=== PATIENT | male | born 1930 | race Caucasian/White ===

== ENCOUNTER 2022-03-12 22:31 | Inpatient (IN) | payer OTHER ==
[~2022-03-12] VITALS: Ht 167.6 cm; Wt 101.4 kg
[~2022-03-12 22:31] MED LIST: ACET500 PO; ALLO300 PO; ASCO1ER PO; ASPI81CH PO; ATEN25 PO; ATEN50 PO; CHOL10002 PO; DOCU100 PO; HCTZ; INDO25 PO; MULVITA PO; MULVITMIND PO; OMEP20ER PO; POTASSIUM PO; RANI150 PO; TERA5 PO; TRIAM; TRIHYD253A PO; VIT D PO; [UNRECOGNIZED DRUG - OTHER]; [UNRECOGNIZED DRUG - OTHER] PO
[2022-03-12 23:52] LABS: BASOPHILS ABSOLUTE AUTO 0.05 K/mm3 (0.00-0.23); BASOPHILS PERCENT AUTO 1 % (0-2); EOSINOPHILS ABSOLUTE AUTO 0.18 K/mm3 (0.00-0.68); EOSINOPHILS PERCENT AUTO 3 % (0-6); Hematocrit 32.6 % (37.0-53.0); Hemoglobin 11.3 g/dL (13.5-17.5); IMMATURE GRAN ABSOLUTE AUTO 0.03 K/mm3 (0.00-0.10); IMMATURE GRAN PERCENT AUTO 1 % (0-1); LYMPHOCYTES ABSOLUTE AUTO 1.09 K/mm3 (0.84-5.20); LYMPHOCYTES PERCENT AUTO 21 % (21-46); MONOCYTES ABSOLUTE AUTO 0.35 K/mm3 (0.16-1.47); MONOCYTES PERCENT AUTO 7 % (4-13); Mean Corpuscular HGB 35.3 pg (26.0-34.0); Mean Corpuscular HGB Conc 34.7 g/dL (31.5-36.5); Mean Corpuscular Volume 102 fL (80-100); Mean Platelet Volume 11.7 fL (9.1-12.4); NEUTROPHILS ABSOLUTE AUTO 3.55 K/mm3 (1.96-9.15); NEUTROPHILS PERCENT AUTO 68 % (41-73); NRBC ABSOLUTE 0.02 K/mm3 (0.00-0.02); NRBC Auto 0.4 /100 WBC (0.0-0.2); Platelet Count 142 K/mm3 (150-400); RDW Coefficient Variation 16.2 % (11.7-14.2); RDW Standard Deviation 60.8 fL (35.1-46.3); White Blood Cell Count 5.25 K/mm3 (4.00-11.30)
[2022-03-13 00:12] LABS: Albumin, Blood 3.3 g/dL (3.4-5.0); Albumin/Globulin Ratio 1.2 (0.8-1.8); Bilirubin, Total 0.8 mg/dL (0.1-1.0); Bun/Creatinine Ratio 25.5 (12.0-20.0); Calcium, Blood 9.1 mg/dL (8.5-10.1); Creatinine, Blood 0.98 mg/dL (0.60-1.20); Globulin, Blood 2.8 g/dL (2.2-4.0); Potassium, Blood 3.5 mmol/L (3.5-5.5); Total Protein, Blood 6.1 g/dL (6.4-8.2)
[2022-03-13 01:19] LABS: International Normalized Ratio 1.17; Prothrombin Time Results 12.2 Sec (9.7-11.5)
[2022-03-13 06:12] LABS: BASOPHILS ABSOLUTE AUTO 0.04 K/mm3 (0.00-0.23); BASOPHILS PERCENT AUTO 1 % (0-2); EOSINOPHILS ABSOLUTE AUTO 0.16 K/mm3 (0.00-0.68); EOSINOPHILS PERCENT AUTO 3 % (0-6); Hematocrit 31.2 % (37.0-53.0); Hemoglobin 10.5 g/dL (13.5-17.5); IMMATURE GRAN ABSOLUTE AUTO 0.05 K/mm3 (0.00-0.10); IMMATURE GRAN PERCENT AUTO 1 % (0-1); LYMPHOCYTES ABSOLUTE AUTO 0.97 K/mm3 (0.84-5.20); LYMPHOCYTES PERCENT AUTO 19 % (21-46); MONOCYTES ABSOLUTE AUTO 0.37 K/mm3 (0.16-1.47); MONOCYTES PERCENT AUTO 7 % (4-13); Mean Corpuscular HGB 34.4 pg (26.0-34.0); Mean Corpuscular HGB Conc 33.7 g/dL (31.5-36.5); Mean Corpuscular Volume 102 fL (80-100); Mean Platelet Volume 11.8 fL (9.1-12.4); NEUTROPHILS ABSOLUTE AUTO 3.47 K/mm3 (1.96-9.15); NEUTROPHILS PERCENT AUTO 69 % (41-73); NRBC ABSOLUTE 0.02 K/mm3 (0.00-0.02); NRBC Auto 0.4 /100 WBC (0.0-0.2); Platelet Count 141 K/mm3 (150-400); RDW Coefficient Variation 16.3 % (11.7-14.2); RDW Standard Deviation 60.7 fL (35.1-46.3); Red Blood Cell Count 3.05 M/mm3 (4.30-5.90); White Blood Cell Count 5.06 K/mm3 (4.00-11.30)
[2022-03-13 06:34] LABS: Albumin, Blood 3.2 g/dL (3.4-5.0); Albumin/Globulin Ratio 1.3 (0.8-1.8); Bun/Creatinine Ratio 26.3 (12.0-20.0); Calcium, Blood 9.3 mg/dL (8.5-10.1); Creatinine, Blood 0.95 mg/dL (0.60-1.20); Globulin, Blood 2.5 g/dL (2.2-4.0); Potassium, Blood 3.7 mmol/L (3.5-5.5); Total Protein, Blood 5.7 g/dL (6.4-8.2)
--- NOTE | 2022-03-13 06:35 | NUR ---
SUMMARY PT ARRIVED TO FLOOR IN NO DISTRESS. PT HAD A JEREMY BLOODY STOOL UPON ARRIVAL. PT DENIES PAIN, DIZZINESS OR N/V. PT RESTING COMFORTABLY. CALL LIGHT IN REACH.
[2022-03-13 08:56] LABS: Hematocrit 29.2 % (37.0-53.0); Hemoglobin 9.8 g/dL (13.5-17.5)
[2022-03-13 13:15] LABS: Hematocrit 26.5 % (37.0-53.0); Hemoglobin 8.9 g/dL (13.5-17.5)
--- NOTE | 2022-03-13 13:42 | NUR ---
Upon receiving a spiritual care referral, I visit. Pt lying in bed and alert. Pt talks at length about his family (blended fam. 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 Rapport is easily established and encouragement easily received by pt. I provide therapeutic listening, recitation of scripture and prayer. After my visit, I returned when a rapid response was called for pt's rm. I provide a calming presence and reassurance to pt. I will continue to remain available to patient and family.
[2022-03-13] MEDS ORDERED: ELIQUIS5 M2 PO (13:53)
[2022-03-13] MEDS ORDERED: VOLTAREN ARTHRI20 GM TOP (13:54)
[2022-03-13] MEDS ORDERED: DYAZIDE 37.5-21 EACH PO (13:55)
--- NOTE | 2022-03-13 13:56 | NUR ---
PT WAS UP TO THE BSC AT AROUND 1230. PT HAD A SYNCOPE EPISODE AND HR OF 25 BPM PER TELE WITH A 3 SEC PAUSE. PT WOKE UP AND WAS RESPONSIVE, ABLE TO TRANSFER BACK TO THE BED, VSS AFTER PLACING THE PT BACK INTO BED. AT 1300 VITAL VS TAKEN AGAIN SHOWED BP 76/46 A RAPID REPSONCE WAS CALLED THE PT STARTED ON A NS BOLUS AND TRANSFERED TO PCU. REPORT CALLED TO BETHANY GODOY RN
[2022-03-13] MEDS ORDERED: OMEP20ER PO (14:05)
[2022-03-13] MEDS ORDERED: B-12500 MC2 PO (14:06)
[2022-03-13] MEDS ORDERED: FINA5 PO (14:06)
[2022-03-13] MEDS ORDERED: ATEN25 PO (14:07)
[2022-03-13] MEDS ORDERED: CELE200 PO (14:07)
[2022-03-13] MEDS ORDERED: POTASSIUM GLUCO99 M1 PO (14:07)
[2022-03-13] MEDS ORDERED: FISH OIL 1,2001 EAC7 PO (14:08)
[2022-03-13] MEDS ORDERED: TERA5 PO (14:10)
[2022-03-13] MEDS ORDERED: ERGO400 PO (14:10)
[2022-03-13] MEDS ORDERED: ALLO300 PO (14:10)
[2022-03-13] MEDS ORDERED: ASCO500 PO (14:11)
[2022-03-13 14:48] LABS: Influenza A, PCR NEGATIVE (NEGATIVE); Influenza B, PCR NEGATIVE (NEGATIVE); Resp Syncytial Virus, PCR NEGATIVE (NEGATIVE); SARS-Cov-2 (COVID-19) PCR, MMC NEGATIVE (NEGATIVE)
--- NOTE | 2022-03-13 15:37 | NUR ---
Pt to scope
--- NOTE | 2022-03-13 16:18 | NUR ---
03/13/22 1618 David Davenport HISTORY, CHART, MEDICATIONS AND ALLERGIES REVIEWED BEFORE START OF PROCEDURE. PATIENT CONFIRMS NPO STATUS AND AGREES WITH SCHEDULED PROCEDURE. 3-LEAD EKG REVIEWED WITH PHYSICIAN PRIOR TO START OF PROCEDURE. MONITOR INTACT WITH CONTINUOUS PULSE OXIMETRY,CAPNOGRAPHY, 3-LEAD EKG, INTERMITTENT BP. SUPPLEMENTAL O2 TO BE TITRATED THROUGHOUT PROCEDURE TO MAINTAIN O2 SATURATION ABOVE 90%. PATIENT DETERMINED TO BE ASA APPROPRIATE FOR PROPOFOL SEDATION PRIOR TO START OF PROCEDURE BY DR. GUTIÉRREZ.
--- NOTE | 2022-03-13 18:37 | NUR ---
Shift Summary Pt to room at approx 1319, receivied bedside report from Manolo Meza. Pt oriented to room and unit. Bed in low, call light within reach. Pt alert, oriented x3, calm and cooperative with care. [facility]. Pt denies pain, chest pain/pressure, sob, nausea and dizziness at rest. Pt on bedrest due to syncopal episode prior to transfer to pcu. Pt tele afib 60-80's, prior to transfer pt dropped to 16-25 bpm per television specialist, ST changes noted per television specialist, ekg completed, Dr Canales notified of results, bp stable, elevated. Ls clear t/o, on 2l o2 via nc spo2 >90%, after blood transfusion and scope, ls dim in bases. Abd soft, nontender with normoactive bt, pt previous passing large amount of dark red blood, no bms noted by this rn. H&H results called to Dr Canales, new orders for 1 unit prbc, completed. Colonoscopy completed this evening, Dr Wang at bedside updated spouse, new order for full liquid diet. Other vss. No other acute changes noted. Will continue to monitor.
--- NOTE | 2022-03-13 20:19 | NUR ---
ASSUMED CARE OF PATIENT AT APPROXIMATELY 1905 FROM BETHANY Casper RN. PATIENT ALERT AND ORIENTED X4; FORGETFUL DURING BEDSIDE REPORTS STATE IT WAS MORNING NOT NIGHT TIME; REORIENTED. PATIENT ABLE TO STATE NAME, , LOCATION. PATIENT DENIES PAIN, DIZZINESS, AND NAUSEA. PATIENT ATE 100% OF FULL LIQUID DIET DINNER. AFIB ON TELE; OXYGEN SATURATION ABOVE 90% ON ROOM AIR. IVF INFUSING PER ORDER; 2X PIV.
--- NOTE | 2022-03-13 23:50 | NUR ---
CALLED Parveen LUA TO REPORT PATIENT NS INFUSING AT 125; PATIENT EATING AND DRINKING; ORDER TO D/C FLUIDS
[2022-03-14 04:27] LABS: BASOPHILS ABSOLUTE AUTO 0.02 K/mm3 (0.00-0.23); BASOPHILS PERCENT AUTO 0 % (0-2); EOSINOPHILS ABSOLUTE AUTO 0.19 K/mm3 (0.00-0.68); EOSINOPHILS PERCENT AUTO 4 % (0-6); Hematocrit 25.4 % (37.0-53.0); Hemoglobin 8.5 g/dL (13.5-17.5); IMMATURE GRAN ABSOLUTE AUTO 0.02 K/mm3 (0.00-0.10); IMMATURE GRAN PERCENT AUTO 0 % (0-1); LYMPHOCYTES ABSOLUTE AUTO 1.04 K/mm3 (0.84-5.20); LYMPHOCYTES PERCENT AUTO 20 % (21-46); MONOCYTES ABSOLUTE AUTO 0.36 K/mm3 (0.16-1.47); MONOCYTES PERCENT AUTO 7 % (4-13); Mean Corpuscular HGB 34.1 pg (26.0-34.0); Mean Corpuscular HGB Conc 33.5 g/dL (31.5-36.5); Mean Corpuscular Volume 102 fL (80-100); Mean Platelet Volume 12.1 fL (9.1-12.4); NEUTROPHILS ABSOLUTE AUTO 3.65 K/mm3 (1.96-9.15); NEUTROPHILS PERCENT AUTO 69 % (41-73); NRBC ABSOLUTE 0.02 K/mm3 (0.00-0.02); NRBC Auto 0.4 /100 WBC (0.0-0.2); Platelet Count 129 K/mm3 (150-400); RDW Coefficient Variation 17.1 % (11.7-14.2); Red Blood Cell Count 2.49 M/mm3 (4.30-5.90); White Blood Cell Count 5.28 K/mm3 (4.00-11.30)
[2022-03-14 04:44] LABS: Bun/Creatinine Ratio 23.8 (12.0-20.0); Calcium, Blood 8.4 mg/dL (8.5-10.1); Creatinine, Blood 0.88 mg/dL (0.60-1.20); Potassium, Blood 3.6 mmol/L (3.5-5.5)
--- NOTE | 2022-03-14 06:16 | NUR ---
PATIENT SLEPT ABOUT EIGHT HOURS LAST NIGHT. NO ACUTE CHANGES TO REPORT.
--- NOTE | 2022-03-14 11:43 | NUR ---
DISCHARGE UPDATE DISCHARGE PACKET GONE OVER WITH PT AND PT AT 1130. PT LEFT UNIT AT 1141 VIA WHEELCHAIR AND ON RA. PT ABLE TO TRANSFER SELF TO AND FROM WHEELCHAIR ON HIS OWN, TOLERATED WELL. PT BELONGINGS IN BAG ALONG WITH DISCHARGE PACKET AND WITH PT DURING DISCHARGE.
== END 2022-03-14 11:45 | disposition home or self-care (01) | DRG 378 ==
LOC: ER 22:31 → MEDS 22:32 → PCU 03-13 05:36
PROVIDERS: Emergency Medicine; Family Medicine; Internal Medicine; Physician Assistant; Student in an Organized Health Care Education/Training Program; ADMIT Family Medicine
PROC: 0DJD8ZZ Inspection of Lower Intestinal Tract, Via Natural or Artificial Opening Endoscopic (ICD-10-PCS; 2022-03-13)
PROC: 30233N1 Transfusion of Nonautologous Red Blood Cells into Peripheral Vein, Percutaneous Approach (ICD-10-PCS; principal; 2022-03-13 17:00)
DX: K57.33 Diverticulitis of large intestine without perforation or abscess with bleeding (principal); I48.20 Chronic atrial fibrillation, unspecified; Z20.822 Contact with and (suspected) exposure to COVID-19; R79.89 Other specified abnormal findings of blood chemistry; K64.4 Residual hemorrhoidal skin tags; K64.8 Other hemorrhoids; D69.6 Thrombocytopenia, unspecified; I49.5 Sick sinus syndrome; K21.9 Gastro-esophageal reflux disease without esophagitis; M10.9 Gout, unspecified; I48.0 Paroxysmal atrial fibrillation; I10 Essential (primary) hypertension; E86.0 Dehydration; N40.0 Benign prostatic hyperplasia without lower urinary tract symptoms; M19.90 Unspecified osteoarthritis, unspecified site; Z96.611 Presence of right artificial shoulder joint; Z96.612 Presence of left artificial shoulder joint; Z96.653 Presence of artificial knee joint, bilateral; Z67.11 Type A blood, Rh negative; Z98.1 Arthrodesis status; Z98.890 Other specified postprocedural states; Z88.6 Allergy status to analgesic agent; Z79.01 Long term (current) use of anticoagulants; Z79.82 Long term (current) use of aspirin; Z79.899 Other long term (current) drug therapy
CPT/HCPCS: 0241U; 36415; 36430; 80048; 80053; 83880; 84484; 85014; 85018; 85025; 85610; 86850; 86900; 86901; 86923; 93005; 93010; 96374; 99285; A9270; C9113; G0378; J2405; J2704; J7030; J7040; J7120; P9016